=== PATIENT | female | born 1965 | race Caucasian/White ===

== ENCOUNTER → 2017-03-07 | Outpatient (CLI) | payer BC ==
--- NOTE | 2017-03-07 09:30 | DIAGNOSTIC IMAGING REPORT ---
RIGHT NECK ULTRASONOGRAPHY CLINICAL HISTORY: Right cervical lymphadenopathy COMPARISON STUDY: No previous studies for comparison. FINDINGS: Multiple small cervical lymph nodes are visualized within the right neck. None of these are pathologically enlarged by size criteria. The 2 largest measure 20 x 7 x 6 mm, 18 x 12 x 8 mm. Clinical follow-up is advocated. If these nodes enlarged or are felt to be clinically suspicious, fine-needle aspiration biopsy could always be obtained in follow-up. IMPRESSION: 1. No evidence of pathologic adenopathy by size criteria 2. Clinical follow-up is advocated. Electronically signed by: Taqueria De La Paz M.D. 03/07/2017 9:29 AM Dictated Date/Time: 03/07/2017 9:27 AM
== END | disposition home or self-care (01) ==
LOC: C.ULTR 09:05
PROVIDERS: ATTEND Family Medicine
DX: R59.0 Localized enlarged lymph nodes (principal)